=== PATIENT | male | born 1985 | race Caucasian/White ===

== ENCOUNTER 2016-11-24 13:40 | Emergency (ER) | payer SELFPAY ==
[~2016-11-24] VITALS: Ht 170.2 cm; Wt 89.5 kg
[~2016-11-24 13:40] MED LIST: BACTRIM,SEPT1 TABLET PO; CEPHALEXIN500 MG PO; DOCUSATE CALCI240 MG PO; LIDOCAINE15 GM TP; MIRALAX255 GM PO; MOTRIN800 MG PO; NUVIGIL200 MG PO; PERCOCET 5/31 TABLET PO; SENNA8.6 M1 PO; SERTRALINE HCL50 MG PO
[2016-11-24 16:18] LABS: HEMATOCRIT 44.5 % (38.0-50.0); MCH 29.9 PG (29.0-34.0); MCHC 33.7 G/DL (30.0-36.0); MCV 88.8 FL (86-99); MEAN PLAT.VOLUME 11.8 uM^3 (9.0-12.4); PLATELET COUNT 196 K/uL (156-360); RBC DIS.WIDTH-CV 12.1 % (11.8-14.6); RBC DIS.WIDTH-SD 39.8 % (39-53); RED BLOOD COUNT 5.01 M/uL (4.00-5.50); WHITE BLOOD COUNT 9.3 K/uL (4.1-10.2)
[2016-11-24 16:27] LABS: CHLORIDE 109 mEq/L (99-109); POTASSIUM 3.9 mEq/L (3.7-5.4); SODIUM 143 mEq/L (136-147)
[2016-11-24 16:29] LABS: GLUCOSE 80 mg/dL (70-99)
[2016-11-24 16:30] LABS: ANION GAP 11 MEQ/L (2-14)
[2016-11-24 16:31] LABS: TOTAL BILIRUBIN 0.4 mg/dL (0.0-1.0)
[2016-11-24 16:33] LABS: ALKALINE PHOSPHATASE 58 IU/L (3-129); GFR ESTIMATE (CALCULATED) > 59 mL/min/
[2016-11-24 16:34] LABS: UREA NITROGEN (BUN) 9 mg/dL (9-23)
[2016-11-24] MEDS ORDERED: TRAMADOL HCL50 MG PO (17:50)
[2016-11-24] MEDS ORDERED: CLINDAMYCIN HC150 MG PO (17:50)
[2016-11-24 18:08] VITALS: BP 143/102
== END 2016-11-24 18:11 | disposition home or self-care (01) ==
LOC: EME 13:40
PROVIDERS: Nurse Practitioner Family
DX: K61.1 Rectal abscess (principal); K64.4 Residual hemorrhoidal skin tags; F17.200 Nicotine dependence, unspecified, uncomplicated
CPT/HCPCS: 74177; 80053; 85027; 99281; 99285; J7030

== ENCOUNTER 2017-02-04 05:31 | Emergency (ER) | payer OTHER ==
[~2017-02-04] VITALS: Ht 170.2 cm; Wt 92.9 kg
[~2017-02-04 05:31] MED LIST changes: +CLINDAMYCIN HC150 MG PO; +TRAMADOL HCL50 MG PO
[2017-02-04 05:32] VITALS: BP 155/110
[2017-02-04] MEDS ORDERED: ADDERALL XR 2020 MG PO (06:38)
[2017-02-04] MEDS ORDERED: AMOXICILLIN500 MG PO (06:51)
[2017-02-04] MEDS ORDERED: PERCOCET 5/31 TABLET PO (06:51)
== END 2017-02-04 07:08 | disposition home or self-care (01) ==
LOC: EME 05:31
DX: K02.9 Dental caries, unspecified (principal); K08.89 Other specified disorders of teeth and supporting structures
CPT/HCPCS: 99281; 99283

== ENCOUNTER 2017-05-05 05:46 | Emergency (ER) | payer OTHER ==
[~2017-05-05] VITALS: Ht 170.2 cm; Wt 96.7 kg
[~2017-05-05 05:46] MED LIST changes: +ADDERALL XR 2020 MG PO; +AMOXICILLIN500 MG PO
[2017-05-05] MEDS ORDERED: NORCO 5/3251 TABLET PO (08:51)
[2017-05-05 09:43] VITALS: BP 144/106
== END 2017-05-05 09:43 | disposition home or self-care (01) ==
LOC: EME 05:46
DX: K02.9 Dental caries, unspecified (principal)
CPT/HCPCS: 99281; 99283

== ENCOUNTER 2017-07-04 22:33 | Emergency (ER) | payer OTHER ==
[~2017-07-04] VITALS: Ht 170.2 cm; Wt 96.4 kg
[~2017-07-04 22:33] MED LIST changes: +NORCO 5/3251 TABLET PO
[2017-07-05] MEDS ORDERED: MOTRIN800 MG PO (01:00)
[2017-07-05 01:22] VITALS: BP 143/104
== END 2017-07-05 01:23 | disposition home or self-care (01) ==
LOC: EME 22:33
DX: M77.51 Other enthesopathy of right foot and ankle (principal)
CPT/HCPCS: 73630; 99281; 99283